=== PATIENT | female | born 1930 | race Caucasian/White ===

== ENCOUNTER 2021-07-09 01:46 | Day surgery (SDC) | payer MEDICARE ==
[~2021-07-09 01:46] MED LIST: ATEN50; GLYMET1.25; QUIN10; TRIM250 PO
== END 2021-07-09 23:15 | disposition home or self-care (01) ==
LOC: WOUND 01:46
DX: L72.3 Sebaceous cyst (principal); I12.0 Hypertensive chronic kidney disease with stage 5 chronic kidney disease or end stage renal disease; E11.22 Type 2 diabetes mellitus with diabetic chronic kidney disease; N18.6 End stage renal disease; F03.90 Unspecified dementia, unspecified severity, without behavioral disturbance, psychotic disturbance, mood disturbance, and anxiety; G47.30 Sleep apnea, unspecified; Z88.8 Allergy status to other drugs, medicaments and biological substances; Z96.643 Presence of artificial hip joint, bilateral
CPT/HCPCS: A9270; G0463

== ENCOUNTER 2021-07-16 02:55 | Day surgery (SDC) | payer MEDICARE | END 2021-07-16 22:53 | disposition home or self-care (01) | LOC: WOUND 02:55 | DX: E11.622 Type 2 diabetes mellitus with other skin ulcer (principal); S21.209D Unspecified open wound of unspecified back wall of thorax without penetration into thoracic cavity, subsequent encounter; L72.3 Sebaceous cyst | CPT/HCPCS: G0463 ==

== ENCOUNTER 2021-08-13 01:02 | Day surgery (SDC) | payer MEDICARE | END 2021-08-13 23:00 | disposition home or self-care (01) | LOC: WOUND 01:02 | DX: Z09 Encounter for follow-up examination after completed treatment for conditions other than malignant neoplasm (principal); L72.3 Sebaceous cyst; E11.622 Type 2 diabetes mellitus with other skin ulcer; S21.209D Unspecified open wound of unspecified back wall of thorax without penetration into thoracic cavity, subsequent encounter | CPT/HCPCS: A9270; G0463 ==